=== PATIENT | male | born 1975 | race Caucasian/White ===

== ENCOUNTER 2016-06-26 07:20 | Emergency (ER) | payer SELFPAY ==
[~2016-06-26] VITALS: Ht 180.3 cm; Wt 105.0 kg
[~2016-06-26 07:20] MED LIST: CYCL-36 PO; MOBI15TA PO
[2016-06-26 07:22] VITALS: BP 154/90; PULSE 108; RESP 15; TEMP 97.5; O2SAT 100
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
[2016-06-26] MEDS ORDERED: MOBI15TA PO (08:16)
[2016-06-26] MEDS ORDERED: ULTR50TA5 PO (08:16)
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
== END 2016-06-26 08:26 | disposition home or self-care (01) ==
LOC: PHED 07:20
DX: S40.011A Contusion of right shoulder, initial encounter (principal); S50.11XA Contusion of right forearm, initial encounter; V48.0XXA Car driver injured in noncollision transport accident in nontraffic accident, initial encounter; W22.11XA Striking against or struck by driver side automobile airbag, initial encounter; Y93.89 Activity, other specified; Y92.810 Car as the place of occurrence of the external cause; Y99.8 Other external cause status
CPT/HCPCS: 73030; 73090; 99283

== ENCOUNTER 2016-09-18 11:45 | Emergency (ER) | payer SELFPAY ==
[~2016-09-18] VITALS: Ht 180.3 cm; Wt 104.5 kg
[~2016-09-18 11:45] MED LIST changes: -CYCL-36 PO; +ULTR50TA5 PO
[2016-09-18 12:00] VITALS: BP 141/78; PULSE 62; RESP 18; TEMP 97.8; O2SAT 100
[2016-09-18] MEDS ORDERED: PROPARACAINE HCL 0.5% OPHT SOLN 15 ML BTL EACH EYE ONE (12:45)
--- NOTE | 2016-09-18 12:58 | PD ---
HPI Chief Complaint: Eye Problems/Injury Time Seen by Provider: 12:40 Travel History International Travel<30 days: No Contact w/Intl Traveler<30days: No Traveled to known affect area: No History of Present Illness HPI 41-year-old male presents to the emergency room for evaluation of possible foreign body, pain, and tearing from the left eye. Patient was tearing down a building in his backyard and hitting rebar and concrete when he noticed a foreign body get into his left eye. He tried to rinse it out with hyoscine. It did not bother him significantly until later on that night. Woke up this morning with continued worsening of pain. He had associated blurry vision in the left eye. Patient wears glasses and states his left eye is his good eye. He denies significant photophobia. Last tetanus was a few years ago. PFSH Past Medical History Arthritis: No Anxiety: No Depression: No Heart Rhythm Problems: No Cancer: No Cardiovascular Problems: No High Cholesterol: No Chemotherapy: No Chest Pain: No Congestive Heart Failure: No Cerebrovascular Accident: No Diabetes: No Diminished Hearing: No Endocrine: No Genitourinary: No Hepatitis: No Hiatal Hernia: No Immune Disorder: No Implanted Vascular Access Dvce: Yes Musculoskeletal: Yes (BACK) Neurologic: Yes (TINGLING BILAT LEGS) Psychiatric: No Reproductive: No Respiratory: No Migraines: No Radiation Therapy: No Seizures: No Sickle Cell Disease: No Thyroid Disease: No Tetanus Vaccination: Unknown Influenza Vaccination: No Past Surgical History Abdominal Surgery: No AICD: No Arteriovenous Shunt: No Cardiac Surgery: No Ear Surgery: Yes Endocrine Surgery: No Eye Surgery: No Genitourinary Surgery: No Gynecologic Surgery: No Insulin Pump: No Joint Replacement: No Oral Surgery: Yes (TONSILLECTOMY) Pacemaker: No Thoracic Surgery: No Tonsillectomy: Yes Other Surgery: Yes Social History Alcohol Use: No Tobacco Use: No (quit) Substance Use: No Allergies-Medications (Allergen,Severity, Reaction): Coded Allergies: No Known Allergies (Unverified , 09/18/16) Reported Meds & Prescriptions Reported Meds & Active Scripts Active No Active Prescriptions or Reported Medications Review of Systems Except as stated in HPI: all other systems reviewed are Neg Physical Exam Narrative GENERAL: Well-nourished, well-developed male in no acute distress. Afebrile. Ambulatory. SKIN: Focused skin assessment warm/dry. HEAD: Normocephalic. EYES: PERRL, EOMI without pain. No significant discharge. Moderate to severe injection on the left without chemosis. No scleral icterus. Visual acuity is 20 /40 in the left and 20/40 in the right. Physical exam reveals a small black foreign body at the 10 o'clock position of the left cornea. Fluorescein staining reveals foreign body and abrasion without laceration. Negative Edwin sign. Eyelid eversion reveals no foreign body of the upper lid. NECK: Supple, trachea midline. No JVD or lymphadenopathy. CARDIOVASCULAR: Regular rate and rhythm without murmurs, gallops, or rubs. RESPIRATORY: Breath sounds equal bilaterally. No accessory muscle use. PSYCHIATRIC: No delusional thought processes. No hallucinations. Data Data Last Documented VS Vital Signs Date Time Temp Pulse Resp B/P Pulse Ox O2 Delivery O2 Flow Rate FiO2 09/18/16 12:00 97.8 62 18 141/78 100 Orders Proparacaine 0.5% Opth Soln (Alcaine 0.5 (09/18/16 12:45) MDM Medical Decision Making Medical Screen Exam Complete: Yes Emergency Medical Condition: Yes Medical Record Reviewed: Yes Differential Diagnosis Foreign body, corneal abrasion, ulceration, conjunctivitis Narrative Course 41-year-old male presents to the emergency room for evaluation of foreign body sensation, tearing, and redness of the left eye after getting a foreign body in it yesterday. Reports progressively worsening redness, tearing, foreign body sensation, and blurry vision. Physical exam reveals PERRL, EOMI without pain. No significant discharge. Moderate to severe injection on the left without chemosis. No scleral icterus. Visual acuity is 20/40 in the left and 20/40 in the right. Physical exam reveals a small black foreign body at the 10 o'clock position of the left cornea. Fluorescein staining reveals foreign body and abrasion without laceration. Negative Edwin sign. Eyelid eversion reveals no foreign body of the upper lid. After patient's eye was numbed with proparacaine , foreign body was removed with a needle. Patient discharged with prescription for erythromycin eye ointment and told to follow up with an histology specialist or return for worsening symptoms. He understands and agrees to plan. Diagnosis Primary Impression: Foreign body of left eye Qualified Code: T15.92XA - Foreign body of left eye, initial encounter Referrals: Primary Care Physician Patient Instructions: Eye Foreign Body (ED), General Instructions Additional Instructions: Rest and drink plenty of fluids. Apply ointment as directed for 3-5 days. Follow-up with an histology specialist if symptoms persist for more than 3 days or worsen significantly. Return to the emergency room for worsening symptoms. Med/Other Pt SpecificInfo: Prescription(s) given Scripts No Active Prescriptions or Reported Meds Disposition: 01 DISCHARGE HOME Condition: Stable Nasra Briones Sep 18, 2016 12:58
[2016-09-18] MEDS ORDERED: ERYTOIN10 LEFT EYE (12:59)
== END 2016-09-18 13:04 | disposition home or self-care (01) ==
LOC: PHEFT 11:45
DX: T15.02XA Foreign body in cornea, left eye, initial encounter (principal); W22.8XXA Striking against or struck by other objects, initial encounter; Y93.H3 Activity, building and construction; Y92.007 Garden or yard of unspecified non-institutional (private) residence as the place of occurrence of the external cause
CPT/HCPCS: 65220

== ENCOUNTER 2016-09-24 05:21 | Emergency (ER) | payer SELFPAY ==
[~2016-09-24] VITALS: Ht 180.3 cm; Wt 104.8 kg
[~2016-09-24 05:21] MED LIST changes: +ERYTOIN10 LEFT EYE; -MOBI15TA PO; -ULTR50TA5 PO
[2016-09-24 05:26] VITALS: BP 131/69; PULSE 70; RESP 18; TEMP 97.9; O2SAT 99
[2016-09-24] MEDS ORDERED: TYLE325T PO (05:43)
[2016-09-24] MEDS ORDERED: FLUORESCEIN SOD 1 MG STRIP LEFT EYE ONE (05:45)
[2016-09-24] MEDS ORDERED: TETRACAINE 0.5% OPTH SOLN 4 ML BTL LEFT EYE ONE (05:45)
--- NOTE | 2016-09-24 06:08 | PD ---
HPI . Left eye pain Chief Complaint: Eye Problems/Injury Time Seen by Provider: 05:39 Travel History International Travel<30 days: No Contact w/Intl Traveler<30days: No Traveled to known affect area: No History of Present Illness HPI Patient presents with the chief complaint of left eye pain. The patient reports a corneal foreign body 5 days ago which was removed here in the emergency department. He was discharged on erythromycin ophthalmic ointment. He states that his symptoms were slowly and steadily improving. However, he awakened early this morning and noted severe left eye pain began. He subsequently presented here for evaluation and treatment. He reports known no new foreign body. He does report a foreign body sensation with associated photophobia and tearing. PFSH Past Medical History Arthritis: No Anxiety: No Depression: No Heart Rhythm Problems: No Cancer: No Cardiovascular Problems: No High Cholesterol: No Chemotherapy: No Chest Pain: No Congestive Heart Failure: No Cerebrovascular Accident: No Diabetes: No Diminished Hearing: No Endocrine: No Genitourinary: No Hepatitis: No Hiatal Hernia: No Immune Disorder: No Implanted Vascular Access Dvce: Yes Musculoskeletal: Yes (BACK) Neurologic: Yes (TINGLING BILAT LEGS) Psychiatric: No Reproductive: No Respiratory: No Migraines: No Radiation Therapy: No Seizures: No Sickle Cell Disease: No Thyroid Disease: No Tetanus Vaccination: < 5 Years Past Surgical History Abdominal Surgery: No AICD: No Arteriovenous Shunt: No Cardiac Surgery: No Ear Surgery: Yes Endocrine Surgery: No Eye Surgery: No Genitourinary Surgery: No Gynecologic Surgery: No Insulin Pump: No Joint Replacement: No Oral Surgery: Yes (TONSILLECTOMY) Pacemaker: No Thoracic Surgery: No Tonsillectomy: Yes Other Surgery: Yes Social History Alcohol Use: No Tobacco Use: No (quit) Substance Use: No Allergies-Medications (Allergen,Severity, Reaction): Coded Allergies: No Known Allergies (Unverified , 09/24/16) Reported Meds & Prescriptions Reported Meds & Active Scripts Active Erythromycin Opth Oint 5 Mg/Gm Oint 1 Applic LEFT EYE QID Reported Tylenol (Acetaminophen) 325 Mg Tab 650 Mg PO Q4H PRN Review of Systems Except as stated in HPI: all other systems reviewed are Neg Eyes: Positive: Blurred Vision, Photophobia, Foreign Body Sensation, Pain, Tearing Physical Exam Narrative GENERAL: Awake and alert and in no acute distress. SKIN: Warm and dry. HEAD: Atraumatic. Normocephalic. EYES: Pupils equal and round. Photophobic. Significant conjunctival injection of the left eye. Cornea is deep and clear. Fluorescein staining shows superficial uptake at about 10:00 near the center of the eye. Lid eversion was done and no foreign body was seen. NECK: Trachea midline. CARDIOVASCULAR: Regular rate and rhythm. RESPIRATORY: No accessory muscle use. MUSCULOSKELETAL: No obvious deformities. No edema. NEUROLOGICAL: Awake and alert. No obvious cranial nerve deficits. Motor grossly within normal limits. Normal speech. PSYCHIATRIC: Appropriate mood and affect; insight and judgment normal. Data Data Last Documented VS Vital Signs Date Time Temp Pulse Resp B/P Pulse Ox O2 Delivery O2 Flow Rate FiO2 09/24/16 05:40 09/24/16 05:26 97.9 70 18 99 Room Air Orders Tetracaine 0.5% Opth Soln (Tetracaine 0. (09/24/16 05:45) Fluorescein Strip (Mcycx-C-Ksthum A.T.) (09/24/16 05:45) MDM Medical Decision Making Medical Screen Exam Complete: Yes Emergency Medical Condition: Yes Differential Diagnosis Differential diagnosis includes but is not limited to conjunctivitis, iritis, corneal abrasion, retained foreign body Narrative Course Patient presents with acute increase left eye pain. Exam shows a superficial corneal abrasion. No foreign body was seen. I will discharge the patient with a prescription for Acular and Lortab. He will be referred to ophthalmology. Diagnosis Primary Impression: Injury of conjunctiva and corneal abrasion of left eye w/o FB Qualified Code: S05.02XA - Injury of conjunctiva and corneal abrasion of left eye without foreign body, initial encounter Referrals: Cecelia Peña MD Patient Instructions: Corneal Abrasion (DC), General Instructions Med/Other Pt SpecificInfo: Prescription(s) given Scripts Hydrocodone-Acetaminophen ([place])5-325 mg Tab1 Tab PO Q4H PRN (PAIN) #10 TAB Ref 0 Prov:Mari Chaparro MD 09/24/16 Ketorolac Opth Drops (Acular Opth Drops)0.5% Drops1 Drop LEFT EYE QID #5 ML Ref 0 Prov:Mari Chaparro MD 09/24/16 Disposition: 01 DISCHARGE HOME Condition: Stable Mari Chaparro MD Sep 24, 2016 06:08
[2016-09-24] MEDS ORDERED: KETO1SOL3 LEFT EYE (06:22)
[2016-09-24] MEDS ORDERED: NORC5TAB PO (06:22)
[2016-09-24] MEDS ORDERED: ACETAMINOPHEN/HYDROcodone 325 MG/10 MG TAB PO ONE (06:30)
== END 2016-09-24 07:09 | disposition home or self-care (01) ==
LOC: PHED 05:21
DX: S05.02XA Injury of conjunctiva and corneal abrasion without foreign body, left eye, initial encounter (principal); Z87.39 Personal history of other diseases of the musculoskeletal system and connective tissue; Z86.69 Personal history of other diseases of the nervous system and sense organs; X58.XXXA Exposure to other specified factors, initial encounter
CPT/HCPCS: 99284